=== PATIENT | male | born 1975 | race American Indian/Alaskan Native ===

== ENCOUNTER 2017-03-20 12:45 | Emergency (ER) | payer OTHER ==
[2017-03-20 12:51] VITALS: BP 121/64; PULSE 60; RESP 16; TEMP 98; O2SAT 95
--- NOTE | 2017-03-20 13:02 | ED PDOC ---
Arrival/HPI - General Time Seen by Provider: 03/20/17 12:49 Historian: Patient - History of Present Illness Narrative History of Present Illness (Text): 03/20/17 12:49 41 y/o male, no significant pmh, nkda, last tetanus doesn't remember, c/o lt. wrist laceration by the glass x 1 hour. Pt. was removing the broken glass from the window, sustained the laceration, no numbness or tingling on the lt. wrist, no difficulty moving the lt. wrist/hand and fingers, no other medical or psychological complaints. Pt. has no homicidal or suicidal ideation, no auditory or visual hallucination. Past Medical History - Provider Review Nursing Documentation Reviewed: Yes Family/Social History - Physician Review Nursing Documentation Reviewed: Yes Family/Social History: Unknown Family HX Allergies/Home Meds Allergies/Adverse Reactions: Allergies No Known Allergies Allergy (Verified 03/20/17 12:46) Review of Systems - Review of Systems Constitutional: absent: Fatigue, Fevers Eyes: absent: Vision Changes ENT: absent: Hearing Changes Respiratory: absent: SOB, Cough Cardiovascular: absent: Chest Pain Gastrointestinal: absent: Abdominal Pain, Diarrhea, Nausea, Vomiting Skin: Laceration. absent: Rash, Pruritis, Skin Lesions, Abscess, Ulcer, Cellulitis Neurological: absent: Headache, Dizziness Physical Exam Vital Signs Reviewed: Yes Vital Signs Temp Pulse Resp BP Pulse Ox 03/20/17 12:46 98.0 F 60 16 121/64 95 Temperature: Afebrile Blood Pressure: Normal Pulse: Regular Respiratory Rate: Normal Appearance: Positive for: Well-Appearing, Non-Toxic, Comfortable Pain Distress: Moderate Mental Status: Positive for: Alert and Oriented X 3 - Systems Exam Head: Present: Atraumatic, Normocephalic Pupils: Present: PERRL Extroacular Muscles: Present: EOMI Conjunctiva: Present: Normal Mouth: Present: Moist Mucous Membranes Neck: Present: Normal Range of Motion Respiratory/Chest: Present: Clear to Auscultation, Good Air Exchange. No: Respiratory Distress, Accessory Muscle Use Cardiovascular: Present: Regular Rate and Rhythm, Normal S1, S2. No: Murmurs Abdomen: Present: Normal Bowel Sounds. No: Tenderness, Distention, Peritoneal Signs Back: Present: Normal Inspection Upper Extremity: Present: Normal Inspection, Other (Lt. wrist: visible approx. 3cm superficial to intermediate depth laceration with no visible glass, thumb able to touch remaining 4 fingers, normal 2 pts discrimination, no visible tendon or nerve laceration, FROM without limitation on the lt. upper extremity, sensation intact, motor 5/5, +radial pulse, capillary refill< 2 seconds, neurovasuclar intact. ). No: Cyanosis, Edema Lower Extremity: Present: Normal Inspection. No: Edema Neurological: Present: GCS=15, CN II-XII Intact, Speech Normal Skin: Present: Warm, Dry, Normal Color. No: Rashes Psychiatric: Present: Alert, Oriented x 3, Normal Insight, Normal Concentration Medical Decision Making ED Course and Treatment: 03/20/17 13:04 -keflex, tetanus, motrin -xray 03/20/17 14:30 -xray show no foreign bodies. -sensation intact, motor 5/5, wound irrigate with 2000cc normal saline, clean with betadine, 1% lidocaine injected locally 0.5cc, sterile procedure, 4-0 vicryl made 2 subcutaneous sutures, 4-0 nylon superficial made 7 sutures, hemostasis obtained, bacitracin and gauze dressing, sensation intact, motor 5/5 , total procedure 20 minutes, less than 5cc of blood loss, no major artery/ tendon/nerve visible injured pre and post the procedure. -Discharge home with keflex, motrin, bacitracin and gauze dressing, clean the wound twice daily staring day 3, sutures need to be removed by day 9-10, follow up with your own pmd and hand specialist/surgeon within 2 days, return to the ER for any new or worsening signs or symptoms. - RAD Interpretation Radiology Orders: 03/20/17 13:06 WRIST, LEFT 3 VIEWS [RAD] Stat PROCEDURE: Left Wrist Radiographs. HISTORY: lt. wrist laceration by glass COMPARISON: None. FINDINGS: BONES: Normal. No fracture. JOINTS: Normal. No dislocation. SOFT TISSUES: Normal. OTHER FINDINGS: None. IMPRESSION: No fracture or foreign body Bookkeeping Manager: Radiologist - Medication Orders Current Medication Orders: Discontinued Medications Cephalexin Monohydrate (Keflex) 500 mg PO STAT STA PRN Reason: Protocol Stop: 03/20/17 13:07 Last Admin: 03/20/17 13:23 Dose: 500 mg Ibuprofen (Motrin Tab) 800 mg PO STAT STA Stop: 03/20/17 13:07 Last Admin: 03/20/17 13:23 Dose: 800 mg Tetanus/Reduced Diphtheria/Acell Pertussis (Boostrix Vaccine Inj) 0.5 ml IM .ONCE ONE Stop: 03/20/17 13:07 Last Admin: 03/20/17 13:23 Dose: 0.5 ml MAR Immunization Data Document 03/20/17 13:23 OCS (Rec: 03/20/17 13:23 OCS [facility] [id number]) Immunization Data Vaccine Lot Number [id number] Vaccine Expiration Date 03/31/19 Site Given Right Deltoid - PA / PODIATRIC MEDICINE PROFESSOR / Resident Statement MD/DO has reviewed & agrees with the documentation as recorded. Disposition/Present on Arrival - Present on Arrival Any Indicators Present on Arrival: Yes History of DVT/PE: No History of Uncontrolled Diabetes: No Urinary Catheter: No History of Decub. Ulcer: No - Disposition Have Diagnosis and Disposition been Completed?: Yes Diagnosis: Wrist laceration Disposition: HOME/ ROUTINE Disposition Time: 14:35 Patient Plan: Discharge Condition: IMPROVED Additional Instructions: -Discharge home with keflex, motrin, bacitracin and gauze dressing, clean the wound twice daily staring day 3, sutures need to be removed by day 9-10, follow up with your own pmd and hand specialist/surgeon within 2 days, return to the ER for any new or worsening signs or symptoms. Prescriptions: Bacitracin Ointment [Bacitracin] 1 appful TOP BID #15 g Cephalexin [Keflex] 500 mg PO QID #28 capsule Ibuprofen [Motrin] 600 mg PO QID PRN #30 tab PRN Reason: Other Referrals: Bam Chavarria MD [Primary Care Provider] - Follow up with primary Jareth Cleaning MD [Staff Provider] - Follow up with primary Lincoln Carrion MD [Staff Provider] - Follow up with primary Forms: WORK NOTE
[2017-03-20] MEDS ORDERED: TDAP Vaccine 0.5 mL Syr IM ONE (13:06)
--- NOTE | 2017-03-20 14:16 | RAD ---
PROCEDURE: Left Wrist Radiographs. HISTORY: lt. wrist laceration by glass COMPARISON: None. FINDINGS: BONES: Normal. No fracture. JOINTS: Normal. No dislocation. SOFT TISSUES: Normal. OTHER FINDINGS: None. IMPRESSION: No fracture or foreign body
== END 2017-03-20 14:44 | disposition home or self-care (01) ==
LOC: ED 12:45
DX: S61.512A Laceration without foreign body of left wrist, initial encounter (principal); W25.XXXA Contact with sharp glass, initial encounter; Z23 Encounter for immunization

== ENCOUNTER 2017-03-27 15:02 | Emergency (ER) | payer OTHER ==
[2017-03-27 15:08] VITALS: BP 123/73; PULSE 81; RESP 18; TEMP 98.4; O2SAT 98
--- NOTE | 2017-03-27 15:47 | ED PDOC ---
Arrival/HPI - General Chief Complaint: Suture/Staple Removal Time Seen by Provider: 03/27/17 15:42 Historian: Patient - History of Present Illness Narrative History of Present Illness (Text): 03/27/17 15:40 A 41 year old male presents to the emergency department for suture removal of left wrist area. Patient cut left wrist with glass a week ago. Reported to the emergency department and jaci were placed. Patient denies any other complaints at this time. Time/Duration: 1 week Symptom Onset: Sudden Activities at Onset: Rest Context: Home Associated Symptoms (Text): none Past Medical History - Provider Review Nursing Documentation Reviewed: Yes - Psychiatric Hx Substance Use: No Family/Social History - Physician Review Nursing Documentation Reviewed: Yes Family/Social History: Other (non contributory) Smoking Status: Never Smoked Hx Alcohol Use: No Hx Substance Use: No Allergies/Home Meds Allergies/Adverse Reactions: Allergies No Known Allergies Allergy (Verified 03/27/17 15:08) Review of Systems - Physician Review All systems were reviewed & negative as marked: Yes - Review of Systems Constitutional: absent: Fevers Skin: Other (suture removal of left wrist) Physical Exam Vital Signs Reviewed: Yes Vital Signs Temp Pulse Resp BP Pulse Ox 03/27/17 15:05 98.4 F 81 18 123/73 98 Appearance: Positive for: Well-Appearing, Non-Toxic, Comfortable Pain Distress: None Mental Status: Positive for: Alert and Oriented X 3 - Systems Exam Head: Present: Atraumatic, Normocephalic Respiratory/Chest: Present: Clear to Auscultation, Good Air Exchange. No: Respiratory Distress, Accessory Muscle Use Cardiovascular: Present: Regular Rate and Rhythm, Normal S1, S2. No: Murmurs Upper Extremity: Present: Other (sutures in place left wrist; no redness, no drainage) Lower Extremity: Present: Normal Inspection. No: Edema Neurological: Present: GCS=15, CN II-XII Intact, Speech Normal Skin: Present: Warm, Dry, Normal Color. No: Rashes Psychiatric: Present: Alert, Oriented x 3, Normal Insight, Normal Concentration Medical Decision Making ED Course and Treatment: 03/27/17 15:40 Sutures were removed. Patient denies any other complaints. I have discussed the results and plan with the patient, who expresses understanding. Patient in agreement with plan to be discharged home. Patient is stable for discharge. Patient was instructed to follow up with physician or return if symptoms worsen or new concerning symptoms arise. - Scribe Statement The provider has reviewed the documentation as recorded by the Saturnino Hunter Provider Scribe Attestation: All medical record entries made by the Scribe were at my direction and personally dictated by me. I have reviewed the chart and agree that the record accurately reflects my personal performance of the history, physical exam, medical decision making, and the department course for this patient. I have also personally directed, reviewed, and agree with the discharge instructions and disposition. Disposition/Present on Arrival - Present on Arrival History of DVT/PE: No History of Uncontrolled Diabetes: No Urinary Catheter: No History of Decub. Ulcer: No History Surgical Site Infection Following: None - Disposition Diagnosis: Visit for suture removal Disposition: HOME/ ROUTINE Disposition Time: 15:43 Patient Problems: Current Active Problems Problem Status Onset Visit for suture removal Acute Condition: GOOD Discharge Instructions (ExitCare): Stitches Removal (ED) Additional Instructions: Please follow up with your doctor. Return to the ER for any worsening symptoms or for any other concerns. Referrals: [facility] [place]] - Follow up with primary Forms: [facility] (Palauan), WORK NOTE
== END 2017-03-27 15:49 | disposition home or self-care (01) ==
LOC: ED 15:02
DX: Z48.02 Encounter for removal of sutures (principal)

== ENCOUNTER 2017-10-04 10:37 | Emergency (ER) | payer OTHER ==
[2017-10-04 10:48] VITALS: BMI 24.8
[2017-10-04] MEDS ORDERED: Morphine 4 mg/ml ISec IVP STA (10:59)
--- NOTE | 2017-10-04 11:03 | ED PDOC ---
Arrival/HPI - General Chief Complaint: Groin Pain Time Seen by Provider: 10/04/17 10:57 Historian: Patient - History of Present Illness Narrative History of Present Illness (Text): 10/04/17 11:00 42yo male with no PMHx s/p right inguinal hernia repair who present with with 3days history of right sided testicular/groin pain. He did not take any medication for the pain. He denies fever, chills, nausea, vomiting, abdominal pain, urinary symptoms, penile discharge, any other complaint. Past Medical History - Provider Review Nursing Documentation Reviewed: Yes - Infectious Disease Hx of Infectious Diseases: None - Psychiatric Hx Substance Use: No Family/Social History - Physician Review Nursing Documentation Reviewed: Yes Family/Social History: Unknown Family HX Smoking Status: Never Smoked Hx Alcohol Use: Yes Frequency of alcohol use: Socially Hx Substance Use: No Allergies/Home Meds Allergies/Adverse Reactions: Allergies No Known Allergies Allergy (Verified 10/04/17 10:46) Review of Systems - Physician Review All systems were reviewed & negative as marked: Yes - Review of Systems Constitutional: Normal Eyes: Normal ENT: Normal Respiratory: Normal Cardiovascular: Normal Gastrointestinal: Normal Genitourinary Male: Other (Testicular pain) Musculoskeletal: Normal Skin: Normal Neurological: Normal Endocrine: Normal Hemo/Lymphatic: Normal Psychiatric: Normal Physical Exam Vital Signs Reviewed: Yes Vital Signs Temp Pulse Resp BP Pulse Ox 10/04/17 18:29 65 17 124/78 100 10/04/17 17:00 68 17 123/80 100 10/04/17 15:00 72 17 121/70 98 10/04/17 13:06 79 18 116/69 98 10/04/17 11:12 98.2 F 86 18 118/73 98 Temperature: Afebrile Blood Pressure: Normal Pulse: Regular Respiratory Rate: Normal Appearance: Positive for: Well-Appearing, Non-Toxic, Comfortable Pain Distress: None Mental Status: Positive for: Alert and Oriented X 3 - Systems Exam Head: Present: Atraumatic, Normocephalic Pupils: Present: PERRL Extroacular Muscles: Present: EOMI Conjunctiva: Present: Normal Mouth: Present: Moist Mucous Membranes Neck: Present: Normal Range of Motion Respiratory/Chest: Present: Clear to Auscultation, Good Air Exchange. No: Respiratory Distress, Accessory Muscle Use Cardiovascular: Present: Regular Rate and Rhythm, Normal S1, S2. No: Murmurs Abdomen: No: Tenderness, Distention, Peritoneal Signs Genitourinary Male: Present: Testicle Tenderness (Right sided abscess with overlaying tenderness), Testicle Swelling (right sided testicle approximately 3 x 7cm abscess noted) Back: Present: Normal Inspection Upper Extremity: Present: Normal Inspection. No: Cyanosis, Edema Lower Extremity: Present: Normal Inspection. No: Edema Neurological: Present: GCS=15, CN II-XII Intact, Speech Normal Skin: Present: Warm, Dry, Normal Color. No: Rashes Psychiatric: Present: Alert, Oriented x 3, Normal Insight, Normal Concentration Medical Decision Making ED Course and Treatment: 10/04/17 20:16 Pt presented for stated history. His pain was controlled in ED with medication. His lab was unremarkable and he was hemodynamically stable in ED. Case was DW the certified ophthalmic surgical assistant Dr. Velasquez, and he saw patient in the ED and requested CT with PO contrast which was done. Scrotal US IMPRESSION: 1. Findings are most compatible with cellulitis/phlegmon in the right inguinal scrotal soft tissues superior to the testicle. Developing abscess is also a differential consideration. Clinical correlation and follow-up is advised. 2. No evidence for testicular mass or torsion. Case was also DW Dr. Ge while he was in ED and he recommends that pt be DC home with PO antibiotic and advised to see him in the office next week. Abdominal/Pelvic CT IMPRESSION:Abdominal/pelvic CT 1. 1.9 cm lucency seen the upper right hemiscrotum approaching the right inguinal region ultrasound findings suspicious for cellulitis, phlegmon or possible abscess. The lack images contrast limits the ability to differentiate between these findings. Consider urological consultation. If clinically warranted, repeat pelvis CT with contrast can be performed for additional detail. 2. Prominent colonic fecal loading as discussed above. All result and plan was DW the pt. He was placed on Keflex and Bactrim DS. Tramdol 50mg given for pain control. Referred to Urologist Dr. Shaikh and Dr. Ge. - Lab Interpretations Lab Results: 10/04/17 11:10 10/04/17 11:10 Lab Results 10/04/17 11:10: Sodium 141, Potassium 3.7, Chloride 102, Carbon Dioxide 30, Anion Gap 13, BUN 12, Creatinine 1.0, Est GFR ( Amer) > 60, Est GFR (Non- Af Amer) > 60, Random Glucose 93, Calcium 9.0, Total Bilirubin 1.0, AST 36, ALT 44, Alkaline Phosphatase 68, Total Protein 7.8, Albumin 4.2, Globulin 3.6, Albumin/Globulin Ratio 1.2 10/04/17 11:10: PT 12.6 H, INR 1.09 H, APTT 30.7 10/04/17 11:10: WBC 9.0, RBC 5.38, Hgb 13.4 L, Hct 41.1 L, MCV 76.4 L, MCH 24.9 L, MCHC 32.6, RDW 13.9, Plt Count 285, MPV 10.3, Gran % 78.0 H, Lymph % (Auto) 15.0 L, Carroll % (Auto) 6.1 H, Eos % (Auto) 0.7 L, Baso % (Auto) 0.2, Gran # 7.04 H, Lymph # (Auto) 1.4, Carroll # (Auto) 0.6, Eos # (Auto) 0.1, Baso # (Auto) 0.02 - RAD Interpretation Radiology Orders: 10/04/17 10:57 TESTES DUPLEX COMPLETE [US] Stat 10/04/17 13:28 ABD & PELVIS PO CONTRAST ONLY [CT] Stat - Medication Orders Current Medication Orders: Discontinued Medications Cephalexin Monohydrate (Keflex) 500 mg PO STAT STA PRN Reason: Protocol Stop: 10/04/17 17:42 Last Admin: 10/04/17 18:41 Dose: 500 mg Morphine Sulfate (Morphine) 4 mg IVP STAT STA Stop: 10/04/17 11:00 Last Admin: 10/04/17 11:19 Dose: 4 mg MAR Pain Assessment Document 10/04/17 11:19 SF (Rec: 10/04/17 11:19 SF [facility] [id number]) Pain Reassessment Is this a pain reassessment? Yes Sleep Is patient sleeping during reassessment? No Presence of Pain Presence of Pain Yes IVP Administration Document 10/04/17 11:19 SF (Rec: 10/04/17 11:19 SF [facility] [id number]) Charges for Administration # of IVP Administrations 1 Trimethoprim/Sulfamethoxazole (Bactrim Ds Tab) 1 tab PO STAT STA PRN Reason: Protocol Stop: 10/04/17 17:43 Last Admin: 10/04/17 18:41 Dose: 1 tab Disposition/Present on Arrival - Present on Arrival Any Indicators Present on Arrival: No History of DVT/PE: No History of Uncontrolled Diabetes: No Urinary Catheter: No History of Decub. Ulcer: No History Surgical Site Infection Following: None - Disposition Have Diagnosis and Disposition been Completed?: Yes Diagnosis: Testicular abscess Disposition: HOME/ ROUTINE Disposition Time: 17:50 Patient Plan: Discharge Condition: STABLE Discharge Instructions (ExitCare): Boil Additional Instructions: Follow up with Surgeon Dr. Ge next week Follow up with Urologist, Dr. Shaikh return to ED for any new or worsening symptoms Prescriptions: Cephalexin [Keflex] 500 mg PO QID #40 capsule Sulfamethoxazole/Trimethoprim [Bactrim DS 800 mg-160 mg] 1 tab PO BID #20 tab traMADol [Ultram] 50 mg PO TID #12 tab Referrals: Bam Chavarria MD [Primary Care Provider] - Follow up with primary Ganesh Ge MD [Staff Provider] - Follow up with primary Kurt Shaikh MD [Staff Provider] - Follow up with primary Forms: [employer] [facility] (Hungarian), WORK NOTE
[2017-10-04 11:12] VITALS: TEMP 98.2
[2017-10-04 12:16] LABS: BASO # 0.02 K/mm3 (0.0-2.0); BASO % 0.2 % (0.0-3.0); EOS # 0.1 (0.0-0.7); EOS % 0.7 % (1.5-5.0); GRAN # 7.04 (1.4-6.5); HEMOGLOBIN 13.4 g/dL (14.0-18.0); LYMPH # 1.4 (1.2-3.4); MEAN CELL VOLUME 76.4 fl (80.0-105.0); MEAN CORPUSCULAR HEMOGLOBIN 24.9 pg (25.0-35.0); MEAN CORPUSCULAR HGB CONC 32.6 g/dl (31.0-37.0); MEAN PLATELET VOLUME 10.3 fl (7.0-11.0); MONO # 0.6 (0.1-0.6); MONO % 6.1 % (1.0-6.0); RBC 5.38 10^6/uL (3.5-6.1); RED CELL DISTRIBUTION WIDTH 13.9 % (11.5-14.5)
[2017-10-04 12:21] LABS: INR 1.09 (0.93-1.08); PARTIAL THROMBOPLASTIN TIME 30.7 Seconds (25.1-36.5); PROTHROMBIN TIME 12.6 SECONDS (9.4-12.5)
[2017-10-04 12:24] LABS: ALB/GLOB RATIO 1.2 (1.1-1.8); ALBUMIN 4.2 g/dL (3.0-4.8); ALT/SGPT 44 U/L (7-56); AST/SGOT 36 U/L (17-59); BLOOD UREA NITROGEN 12 mg/dL (7-21); GFR AFRICAN-AMERICAN > 60; GFR NON-AFRICAN AMERICAN > 60
--- NOTE | 2017-10-04 12:48 | US ---
HISTORY: right sided abscess TECHNIQUE: Realtime sonography through the scrotum with color and doppler flow. COMPARISON: None available. FINDINGS: RIGHT TESTICLE: Measures 3.9 X 2.7 X 0.5 cm. Normal echotexture and flow. RIGHT EPIDIDYMIS: Epididymal head measures 1.2 X 1.0 X 1.1 cm. Grossly unremarkable appearance with normal flow. LEFT TESTICLE: Measures 4.3 X 3.1 X 2.7 cm. Normal echotexture and flow. LEFT EPIDIDYMIS: Epididymal head measures 1.1 X 1.0 X 1.3 cm. Grossly unremarkable appearance with normal flow. HYDROCELE: None. VARICOCELE: None. OTHER FINDINGS: There is an apparent 2.4 X 3.2 X 3.7 CM heterogeneous hypoechoic lesion with increased peripheral vascularity in the right inguinal scrotal soft tissues superior to the testicle. IMPRESSION: 1. Findings are most compatible with cellulitis/phlegmon in the right inguinal scrotal soft tissues superior to the testicle. Developing abscess is also a differential consideration. Clinical correlation and follow-up is advised. 2. No evidence for testicular mass or torsion.
[2017-10-04] MEDS ORDERED: Iohexol 240 (50 ml) ONE (13:36)
[2017-10-04 15:40] VITALS: RESP 17
--- NOTE | 2017-10-04 15:56 | CP.PCM.CON ---
History of Present Illness - History of Present Illness History of Present Illness: 42 year old male with a history of nephrolithiais and right inguinal hernia (s/ p reduction 22 years ago) comes into the emergency room complaining of right sided scrotal swelling Sunday night. The patient describes the pain as sharp in nature that comes and goes. The patient reports taking aspirin with some improvement in pain. The patient denies any urinary changes, penile discharge, nausea, vomiting, trauma to the area, abdominal pain, chest pain, shortness of breath, fevers, chills, changes in vision, or any other complaints. PMD: Dr. Chavarria Past medical history: Nephrolithiasis Medications: Denies Allergies: Denies Surgical history: Right inguinal hernia repair Social history:Social drinker. Former smoker Review of Systems - Review of Systems All systems: reviewed and no additional remarkable complaints except (as per HPI ) Past Patient History - Infectious Disease Hx of Infectious Diseases: None - Past Social History Smoking Status: Never Smoked - PSYCHIATRIC Hx Substance Use: No - SURGICAL HISTORY Hx Surgeries: No Meds Allergies/Adverse Reactions: Allergies Allergy/AdvReac Type Severity Reaction Status Date / Time No Known Allergies Allergy Verified 10/04/17 10:46 Physical Exam - Head Exam Head Exam: ATRAUMATIC, NORMAL INSPECTION, NORMOCEPHALIC - Eye Exam Eye Exam: EOMI - ENT Exam ENT Exam: Mucous Membranes Moist - Respiratory Exam Respiratory Exam: Clear to Auscultation Bilateral, NORMAL BREATHING PATTERN - Cardiovascular Exam Cardiovascular Exam: REGULAR RHYTHM - GI/Abdominal Exam GI & Abdominal Exam: Normal Bowel Sounds, Soft - Exam Exam: Scrotal Swelling, Testicular Tenderness External exam: Erythema - Extremities Exam Extremities exam: Positive for: normal inspection - Back Exam Back exam: NORMAL INSPECTION - Neurological Exam Neurological exam: Alert, CN II-XII Intact - Psychiatric Exam Psychiatric exam: Normal Affect, Normal Mood - Skin Skin Exam: Dry, Intact Results - Vital Signs Recent Vital Signs: Last Vital Signs Temp 98.2 F 10/04/17 11:12 Pulse 72 10/04/17 15:00 Resp 17 10/04/17 15:00 BP 121/70 10/04/17 15:00 Pulse Ox 98 10/04/17 15:00 - Labs Result Diagrams: 10/04/17 11:10 10/04/17 11:10 Labs: Laboratory Results - last 24 hr 10/04/17 10/04/17 10/04/17 11:10 11:10 11:10 WBC 9.0 RBC 5.38 Hgb 13.4 L Hct 41.1 L MCV 76.4 L MCH 24.9 L MCHC 32.6 RDW 13.9 Plt Count 285 MPV 10.3 Gran % 78.0 H Lymph % (Auto) 15.0 L Ponce % (Auto) 6.1 H Eos % (Auto) 0.7 L Baso % (Auto) 0.2 Gran # 7.04 H Lymph # (Auto) 1.4 Ponce # (Auto) 0.6 Eos # (Auto) 0.1 Baso # (Auto) 0.02 PT 12.6 H INR 1.09 H APTT 30.7 Sodium 141 Potassium 3.7 Chloride 102 Carbon Dioxide 30 Anion Gap 13 BUN 12 Creatinine 1.0 Est GFR ( Amer) > 60 Est GFR (Non-Af Amer) > 60 Random Glucose 93 Calcium 9.0 Total Bilirubin 1.0 AST 36 ALT 44 Alkaline Phosphatase 68 Total Protein 7.8 Albumin 4.2 Globulin 3.6 Albumin/Globulin Ratio 1.2 Assessment & Plan - Assessment and Plan (Free Text) Assessment: 42 year old male with scrotal swelling. Plan: -Will f/u Abdominal pelvis CT scan with contrast -Pain mangement. -Will continue to monitor.
--- NOTE | 2017-10-04 16:14 | CT ---
PROCEDURE: CT Abdomen and Pelvis with contrast HISTORY: Right testicular pain/abscess COMPARISON: None. TECHNIQUE: Contrast dose: None Radiation dose: Total exam DLP = 328.84 mGy-cm. This CT exam was performed using one or more of the following dose reduction techniques: Automated exposure control, adjustment of the mA and/or kV according to patient size, and/or use of iterative reconstruction technique. FINDINGS: LOWER THORAX: Unremarkable. LIVER: Unremarkable. No gross lesion or ductal dilatation. GALLBLADDER AND BILE DUCTS: The gallbladder appears distended and is otherwise unremarkable. PANCREAS: Unremarkable. No gross lesion or ductal dilatation. SPLEEN: Unremarkable. ADRENALS: Unremarkable. No mass. KIDNEYS AND URETERS: Unremarkable. No hydronephrosis. No solid mass. VASCULATURE: Unremarkable. No aortic aneurysm. BOWEL: There is prominent fecal loading throughout the colon, potentially a sign of constipation. Clinically correlate. No bowel obstruction is identified with opacified small bowel loops unremarkable appearing. APPENDIX: The appendix not clearly identified. No definite CT pattern of appendicitis is seen at this time. PERITONEUM: Unremarkable. No free fluid. No free air. LYMPH NODES: Unremarkable. No enlarged lymph nodes. BLADDER: Prominent thickening in the urinary bladder may indicate cystitis though neoplasm is including the differential diagnosis. Urine bladder is not fully distended but the mural thickness is greater than that expected based on partial collapse. REPRODUCTIVE: Evaluation of the scrotum reveals dermal thickening at the right greater than left sides suggestive of cellulitis. A small right hydrocele is identified in sonogram performed earlier today 10/04/2017 as well as an area of heterogeneous echogenicity cephalad to the right testicle and epididymis. This heterogeneous soft tissue finding measure 3.7 cm greatest dimension sonographically and may correspond to a 2.0 cm low lucency at the upper right hemiscrotum laterally. See image 172 series 3, axial and image 41 series 601, coronal. The same differential diagnosis of cellulitis and phlegmon as well as possible abscess supplies. The lack of intravenous contrast limits the ability to differentiate between these findings. No emphysematous changes are related. Further clinical correlation is recommended. BONES: No acute fracture. OTHER FINDINGS: None. IMPRESSION: 1. 1.9 cm lucency seen the upper right hemiscrotum approaching the right inguinal region ultrasound findings suspicious for cellulitis, phlegmon or possible abscess. The lack images contrast limits the ability to differentiate between these findings. Consider urological consultation. If clinically warranted, repeat pelvis CT with contrast can be performed for additional detail. 2. Prominent colonic fecal loading as discussed above.
[2017-10-04] MEDS ORDERED: Tmp-Smz 800 mg-160 mg DS Tab PO STA (17:42)
[2017-10-04 18:29] VITALS: O2SAT 100
[2017-10-04 19:29] VITALS: BP 124/78; PULSE 65
== END 2017-10-04 18:30 | disposition home or self-care (01) ==
LOC: ED 10:37
DX: N45.4 Abscess of epididymis or testis (principal)
CPT/HCPCS: 74176; 80053; 85025; 85610; 85730; 87040; 93975; 96374; 99285; J2270; Q9966

== ENCOUNTER 2017-10-10 12:32 | Emergency (ER) | payer OTHER ==
[2017-10-10 12:49] VITALS: BMI 20.7
--- NOTE | 2017-10-10 13:18 | ED PDOC ---
Arrival/HPI - General Chief Complaint: Wound Check Time Seen by Provider: 10/10/17 12:52 Historian: Patient - History of Present Illness Narrative History of Present Illness (Text): you were treated in the ED today for wound check and doing well with mild drainage from right scrotal area and feels improved without any any nausea/ vomiting/headache/dizziness/difficulty breathing/chest pain/abdomen pain/ numbness/tingling/loss of limb function/pain with urination/penis or scrotal or testicular pain. Doesn't want sexual disease testing or treatment at this time. You were otherwise breathing easily, smiling and talking easily, good strength/ sensation, walking easily, clear lungs, no abdomen tenderness, mild draining wound adjacant to the scrotum without tenderness or pocket of softness noted and without any penis/scrotal/testicular tenderness and with testicles in good position, no fever temp 98.5, stable heart rate 80, stable breathing rate 18, excellent oxygen level 98% room air, stable blood pressure 117/70 which we recommend repeat in 2 days primary care office to determine further treatment, done in the ED with improvement, counselled to continue warm compresses to wound area to continue to allow draining and thus discharged home. 1. Recommend continue your antibiotics as previously prescribed. 2. Recommend continue warm compresses to wound area to allow drainage. 3. Recommend follow-up primary care 2 days to review symptoms, referral to Dr. Shaikh's office urology and Dr. Ge surgery office. 4. If any worsening pain, fever, chills, nausea, vomiting, difficulty breathing, numbness, loss of limb function, pain with urination or any medical condition then return to the ED. Time/Duration: 1 week Symptom Onset: Gradual Symptom Course: Improving Quality: Other (no pain) Activities at Onset: Rest Context: Sitting Past Medical History - Provider Review Nursing Documentation Reviewed: Yes - Travel History Have you recently traveled outside [place] w/in the past 3 mons?: No - Infectious Disease Hx of Infectious Diseases: None - Psychiatric Hx Substance Use: No - Anesthesia Hx Anesthesia: No Family/Social History - Physician Review Nursing Documentation Reviewed: Yes Family/Social History: No Known Family HX Smoking Status: Never Smoked Hx Alcohol Use: Yes Hx Substance Use: No Allergies/Home Meds Allergies/Adverse Reactions: Allergies No Known Allergies Allergy (Verified 10/04/17 10:46) Review of Systems - Review of Systems Constitutional: Normal Eyes: Normal ENT: Normal Respiratory: Normal Cardiovascular: Normal Gastrointestinal: Normal Genitourinary Male: Normal Musculoskeletal: Normal Skin: Normal Neurological: Normal Endocrine: Normal Hemo/Lymphatic: Normal Psychiatric: Normal Physical Exam Vital Signs Reviewed: Yes Vital Signs Temp Pulse Resp BP Pulse Ox 10/10/17 12:46 98.5 F 80 18 117/70 98 Temperature: Afebrile Blood Pressure: Normal Pulse: Regular Respiratory Rate: Normal Appearance: Positive for: Well-Appearing, Non-Toxic, Comfortable Pain Distress: None Mental Status: Positive for: Alert and Oriented X 3 - Systems Exam Head: Present: Atraumatic, Normocephalic Pupils: Present: PERRL Extroacular Muscles: Present: EOMI Conjunctiva: Present: Normal Ears: Present: Normal Mouth: Present: Moist Mucous Membranes Pharnyx: Present: Normal Nose (External): Present: Atraumatic Nose (Internal): Present: Normal Inspection Neck: Present: Normal Range of Motion Respiratory/Chest: Present: Clear to Auscultation, Good Air Exchange Cardiovascular: Present: Regular Rate and Rhythm Abdomen: No: Tenderness, Distention, Normal Bowel Sounds, Peritoneal Signs, Rebound, Guarding, McBurney's Point Tender, Rovsing's Sign Present, Hernias, Feeding Tubes, Ostomy Tubes, Mass/Organomegaly, Scars, Other Genitourinary Male: Present: Other ( mild draining wound adjacant to the scrotum without tenderness or pocket of softness noted and without any penis/ scrotal/testicular tenderness and with testicles in good position). No: Normal External Genitalia, Circumcised Penis, Lesions, Penile Discharge, Testicle Tenderness, Penile Swelling, Masses, Erythema, Hernias, Testicle Swelling, Prostate Tenderness, Prostate Enlargement Back: Present: Normal Inspection Upper Extremity: Present: Normal Inspection Lower Extremity: Present: Normal Inspection Neurological: Present: GCS=15, CN II-XII Intact, Speech Normal, Motor Func Grossly Intact Skin: Present: Other (see gu) Psychiatric: Present: Alert, Oriented x 3, Normal Insight, Normal Concentration Medical Decision Making ED Course and Treatment: you were treated in the ED today for wound check and doing well with mild drainage from right scrotal area and feels improved without any any nausea/ vomiting/headache/dizziness/difficulty breathing/chest pain/abdomen pain/ numbness/tingling/loss of limb function/pain with urination/penis or scrotal or testicular pain. Doesn't want sexual disease testing or treatment at this time. You were otherwise breathing easily, smiling and talking easily, good strength/ sensation, walking easily, clear lungs, no abdomen tenderness, mild draining wound adjacant to the scrotum without tenderness or redness/crepitus/pocket of softness noted and without any penis/scrotal/testicular tenderness and with testicles in good position, no fever temp 98.5, stable heart rate 80, stable breathing rate 18, excellent oxygen level 98% room air, stable blood pressure 117/70 which we recommend repeat in 2 days primary care office to determine further treatment, done in the ED with improvement, discussed with surgery on- call Dr. Starr stated can go home and, counselled to continue warm compresses to wound area to continue to allow draining and thus discharged home. 1. Recommend continue your antibiotics as previously prescribed. 2. Recommend continue warm compresses to wound area to allow drainage. 3. Recommend follow-up primary care 2 days to review symptoms, referral to Dr. Shaikh 's office urology and Dr. Ge surgery office. 4. If any worsening pain, fever, chills, nausea, vomiting, difficulty breathing, numbness, loss of limb function, pain with urination or any medical condition then return to the ED. 10/10/17 13:49 10/10/17 13:49 10/10/17 14:17 Reassessment Condition: Re-examined, Improved Disposition/Present on Arrival - Present on Arrival Any Indicators Present on Arrival: No History of DVT/PE: No History of Uncontrolled Diabetes: No Urinary Catheter: No History of Decub. Ulcer: No History Surgical Site Infection Following: None - Disposition Have Diagnosis and Disposition been Completed?: Yes Diagnosis: Cellulitis of scrotum, Visit for wound check Disposition: HOME/ ROUTINE Disposition Time: 14:17 Patient Plan: Discharge Patient Problems: Current Active Problems Problem Status Onset Cellulitis of scrotum Acute Visit for wound check Acute Condition: IMPROVED Discharge Instructions (ExitCare): Cellulitis (ED), Cellulitis (Skin Infection) , Adult (DC) Additional Instructions: you were treated in the ED today for wound check and doing well with mild drainage from right scrotal area and feels improved without any any nausea/ vomiting/headache/dizziness/difficulty breathing/chest pain/abdomen pain/ numbness/tingling/loss of limb function/pain with urination/penis or scrotal or testicular pain. Doesn't want sexual disease testing or treatment at this time. You were otherwise breathing easily, smiling and talking easily, good strength/ sensation, walking easily, clear lungs, no abdomen tenderness, mild draining wound adjacant to the scrotum without tenderness or redness/crepitus/pocket of softness noted and without any penis/scrotal/testicular tenderness and with testicles in good position, no fever temp 98.5, stable heart rate 80, stable breathing rate 18, excellent oxygen level 98% room air, stable blood pressure 117/70 which we recommend repeat in 2 days primary care office to determine further treatment, done in the ED with improvement, discussed with surgery on- call Dr. Starr stated can go home and, counselled to continue warm compresses to wound area to continue to allow draining and thus discharged home. 1. Recommend continue your antibiotics as previously prescribed. 2. Recommend continue warm compresses to wound area to allow drainage. 3. Recommend follow-up primary care 2 days to review symptoms, referral to Dr. Shaikh 's office urology and Dr. Ge surgery office. 4. If any worsening pain, fever, chills, nausea, vomiting, difficulty breathing, numbness, loss of limb function, pain with urination or any medical condition then return to the ED. Forms: [facility] ([place]), WORK NOTE
[2017-10-10 15:16] VITALS: RESP 16; O2SAT 99
[2017-10-10 15:26] VITALS: BP 142/70; PULSE 75; TEMP 98.1
== END 2017-10-10 14:15 | disposition home or self-care (01) ==
LOC: ED 12:32
DX: Z51.89 Encounter for other specified aftercare (principal); N49.2 Inflammatory disorders of scrotum